=== PATIENT | female | born 1980 | race Caucasian/White ===

== ENCOUNTER → 2020-09-01 10:16 | Outpatient (BNVA) | payer MEDICARE, SELFPAY | PROVIDERS: PCP Nurse Practitioner Family; Visit Provider Internal Medicine | DX: M06.9 Rheumatoid arthritis, unspecified (principal); Z11.59 Encounter for screening for other viral diseases; Z11.1 Encounter for screening for respiratory tuberculosis; Z79.899 Other long term (current) drug therapy | CPT/HCPCS: 73120; 80053; 82306; 84443; 85025; 85651; 86160; 86162; 86235; 86255; 86376; 86431; 86480; 86704; 86803; 87340; 99203 ==

== ENCOUNTER 2020-09-01 12:50 | Outpatient (CLI) | payer MEDICARE, SELFPAY ==
--- NOTE | 2020-09-01 12:58 | XR_ITS ---
WS: [id number] Left hand, 2views, 09/01/2020 Clinical Data: M06.9 - Rheumatoid arthritis, unspecified Comparison: None. Findings: No new fractures or dislocations are seen. The soft tissues are unremarkable. The joint spaces are no rmal There is an old fracture of the left fifth metacarpal. No periarticular demineralization or calcific ation is seen. XR/XR hand LT 2V [id number] Impression: Negative left hand.
--- NOTE | 2020-09-01 12:58 | XR_ITS ---
WS: [id number] Right hand, 2 views, 09/01/2020 Clinical Data: M06.9 - Rheumatoid arthritis, unspecified Comparison: None. Findings: No fractures or dislocations are seen. The soft tissues are unremarkable. The joint space s are normal No periarticular demineralization or calcifications are seen. XR/XR hand RT 2V [id number] Impression: Negative right hand.
[2020-09-01 13:45] LABS: Basophils # 0.1 10^3/uL (0.0-0.1); Basophils % 0.8 %; Eosinophils # 0.1 10^3/uL (0.0-0.8); Eosinophils % 1.1 %; Hematocrit 35.2 % (37.0-47.0); Hemoglobin 10.2 g/dL (11.5-15.3); Lymphocytes # 1.5 10^3/uL (0.8-4.8); Lymphocytes % 21.6 %; Mean Corpuscular Hemoglobin 22.4 pg (28.0-34.0); Mean Corpuscular Volume 77.2 fL (81-99); Mean Platelet Volume 11.6 fL (7.4-10.4); Monocytes # 0.4 10^3/uL (0.2-0.9); Monocytes % 6.2 %; Neutrophils # 4.99 10^3/uL (1.8-7.7); Nucleated Red Blood Cells % 0 %; Platelet Count 348 10^3/cmm (130-400); Red Blood Count 4.56 10^6/uL (4.1-5.3); Red Cell Distribution Width 14.7 % (12.1-15.1); White Blood Count 7.1 10^3/uL (4.0-10.0)
[2020-09-01 14:39] LABS: Erythrocyte Sedimentation Rate 24 mm/hr (0-15)
[2020-09-01 14:55] LABS: Hepatitis B Surface Antigen Non-Reactive (Nonreactive)
[2020-09-01 14:56] LABS: Hepatitis C Virus Antibody Non-Reactive (Nonreactive)
[2020-09-01 15:02] LABS: Hepatitis B Core AB, Total Non-Reactive (Nonreactive)
[2020-09-01 15:34] LABS: 25 Hydroxy Vitamin D 15 ng/mL (30-100); Alanine Aminotransferase 16 U/L (0-33); Albumin Level 4.4 g/dL (3.5-5.2); Alkaline Phosphatase 100 IU/L (35-105); Anion Gap 17.4 (5-19); Aspartate Amino Transferase 17 U/L (0-32); Blood Urea Nitrogen 8 mg/dL (6-20); Calcium 9.4 mg/dL (8.5-10.5); Carbon Dioxide 26 mmol/L (22-29); Chloride 101 mmol/L (98-107); Globulin 2.7 g/dL (1.3-4.6); Glomerular Filtration Rate 70.1 mL/min (90-130); Glucose 92 mg/dL (65-115); Osmolality Calculated 288 mOsm/kg (285-295); Potassium 4.4 mmol/L (3.5-5.1); Sodium 140 mmol/L (136-145); Thyroid Stimulating Hormone 0.58 uIU/mL (0.27-4.20); Total Bilirubin 0.2 mg/dL (0.15-1.2); Total Protein 7.1 g/dL (6.6-8.7)
[2020-09-02 13:07] LABS: COMPLEMENT COMPONENT C3C 181 mg/dL (83-193); COMPLEMENT COMPONENT C4C 42 mg/dL (15-57)
[2020-09-02 13:42] LABS: CENTROMERE B ANTIBODY <1.0 NEG AI (<1.0 NEG); JO-1 ANTIBODY <1.0 NEG AI (<1.0 NEG); RNP ANTIBODY <1.0 NEG AI (<1.0 NEG); SCL-70 ANTIBODY <1.0 NEG AI (<1.0 NEG); SJOGREN'S ANTIBODY (SS-A) <1.0 NEG AI (<1.0 NEG); SM ANTIBODY <1.0 NEG AI (<1.0 NEG); SS-B <1.0 NEG AI (<1.0 NEG)
[2020-09-02 15:27] LABS: Cyclic Citrullinated Peptide <16 UNITS; THYROID PEROXIDASE ANTIBODIES 1 IU/mL (<9)
[2020-09-02 15:58] LABS: ANA SCREEN, IFA NEGATIVE (NEGATIVE); COMPLEMENT, TOTAL (CH50) >60 U/mL (31-60)
[2020-09-03 15:34] LABS: Quantiferon Mitogen 8.71 IU/mL; Quantiferon Nil 0.01 IU/mL; Quantiferon Plus TB1 0.01 IU/mL; Quantiferon TB Gold NEGATIVE (NEGATIVE)
[2020-09-08 01:43] LABS: DNA AB (DS) CRITHIDIA,IFA NEGATIVE (NEGATIVE)
== END 2020-09-01 12:51 | disposition home or self-care (01) ==
PROVIDERS: PCP Nurse Practitioner Family; Visit Provider Internal Medicine
DX: M06.9 Rheumatoid arthritis, unspecified (principal); Z11.59 Encounter for screening for other viral diseases; Z11.1 Encounter for screening for respiratory tuberculosis
CPT/HCPCS: 73120; 80053; 82306; 84443; 85025; 85651; 86160; 86162; 86235; 86255; 86376; 86431; 86480; 86704; 86803; 87340